=== PATIENT | male | born 1965 | race Caucasian/White ===

== ENCOUNTER 2017-04-23 13:38 | Emergency (ER) | payer OTHER ==
[~2017-04-23] VITALS: Ht 162.6 cm; Wt 74.0 kg
[~2017-04-23 13:38] MED LIST: NATURAL BP MED PO; PRIL20TA2 PO; [UNRECOGNIZED DRUG - REMARK] PO
[2017-04-23 13:46] VITALS: BP 184/108; PULSE 109; RESP 16; TEMP 99.5; O2SAT 97
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
[2017-04-23] MEDS ORDERED: predniSONE 20 MG TAB PO ONE (15:45)
[2017-04-23] MEDS ORDERED: RESP: ALBUTEROL 2.5 MG/IPRATROPIUM 0.5 MG NEB (SCH) INH ONE (15:45)
[2017-04-23] MEDS ORDERED: LISI40TA PO (16:06)
[2017-04-23] MEDS ORDERED: METF850T PO (16:06)
[2017-04-23 16:11] VITALS: BP 147/95; PULSE 105; RESP 18; O2SAT 97
[2017-04-23] MEDS ORDERED: AMOX875T PO (16:13)
[2017-04-23] MEDS ORDERED: VENTAER INH (16:13)
[2017-04-23] MEDS ORDERED: FLUT1SPR5 EACH NARE (16:13)
[2017-04-23] MEDS ORDERED: PRED20 PO (16:13)
== END 2017-04-23 16:24 | disposition home or self-care (01) ==
LOC: PHED 13:38 → PHEFT 16:24
DX: J30.1 Allergic rhinitis due to pollen (principal); J20.9 Acute bronchitis, unspecified
CPT/HCPCS: 94664; 99284; J7512